=== PATIENT | male | born 1945 | race Caucasian/White ===

== ENCOUNTER 2019-06-28 06:43 | Emergency (ER) | payer MEDICARE, BC ==
--- NOTE | 2019-06-28 07:33 | EDM.PDOC ---
ED HPI GENERAL MEDICAL PROBLEM - General Chief Complaint: Laceration Stated Complaint: FELL IN BATHROOM HIT LIP AND BLEEDING Time Seen by Provider: 06/28/19 07:00 Source of Information: Reports: Patient, Family History Limitations: Reports: No Limitations - History of Present Illness INITIAL COMMENTS - FREE TEXT/NARRATIVE: 73-year-old male was on the toilet this morning when he became lightheaded and had a syncopal episode. He was completely unconscious briefly and fell forward hitting his lip on the floor. He was confused for a period of time but then "came around". If it wasn't for the lip laceration his would not brought him in. He is relatively healthy, on no prescription medications, and "does not like hospitals". He had a community screening which I believe was an ultrasound screening this summer and nothing was found, his last annual physical was last August with Dr. Hinojosa. He denies any chest pain, shortness of breath, nausea or vomiting, peripheral edema, joint pains or headache. He has had a cold for the last few days which he is "getting over", has taken some DayQuil cold medicine. Onset: Sudden Duration: Hour(s): (Within the last hour and a half) Location: Reports: Other (Injury is to his lower lip) Associated Symptoms: Reports: Confusion (After fainting he was confused for a period of time), Syncope. Denies: Chest Pain, Cough, Headaches, Nausea/Vomiting , Shortness of Breath - Related Data Allergies Allergy/AdvReac Type Severity Reaction Status Date / Time No Known Allergies Allergy Verified 02/22/16 09:52 Home Meds: Home Meds Cholecalciferol (Vitamin D3) [Vitamin D3] 1,000 units PO DAILY 02/18/16 [History ] Fish Oil/[place]-3 Fatty Acids [Fish Oil 1,000 MG] 1 each PO DAILY 02/18/16 [ History] Naproxen Sodium [Aleve] 220 mg PO BID 02/18/16 [History] Past Medical History HEENT History: Reports: Cataract Cardiovascular History: Reports: Heart Murmur Respiratory History: Reports: Other (See Below) Other Respiratory History: epiglotitis 27 yrs ago Gastrointestinal History: Reports: Colon Polyp Oncologic (Cancer) History: Reports: Other (See Below) Other Oncologic History: skin CA Dermatologic History: Reports: Other (See Below) Other Dermatologic History: skin CA - Past Surgical History HEENT Surgical History: Reports: Cataract Surgery GI Surgical History: Reports: Colonoscopy, Hernia, Inguinal Musculoskeletal Surgical History: Reports: Other (See Below) Social & Family History - Tobacco Use Smoking Status *Q: Never Smoker - Caffeine Use Caffeine Use: Reports: Coffee - Recreational Drug Use Recreational Drug Use: No ED ROS GENERAL - Review of Systems Review Of Systems: See Below Constitutional: Denies: Fever, Chills HEENT: Reports: Other (Initially thought his teeth were "out of alignment" but now he says they're fine, he thinks he was just confused) Respiratory: Denies: Shortness of Breath, Cough, Sputum Cardiovascular: Denies: Chest Pain, Palpitations GI/Abdominal: Denies: Abdominal Pain, Nausea, Vomiting : Reports: No Symptoms Skin: Reports: No Symptoms Neurological: Reports: Syncope. Denies: Headache Psychiatric: Reports: No Symptoms (Patient is extremely anxious about being in hospitals) ED EXAM, SKIN/RASH Exam: See Below Exam Limited By: No Limitations General Appearance: Alert, No Apparent Distress Eye Exam: Bilateral Eye: Normal Inspection Head: Other (Lip laceration is present on the lower lip. It is transverse through the mucosa of the lower lip, it does not cross the vermilion border but there is a separate 1 cm transverse laceration under the lip just below the vermilion border. The vermilion border is not lacerated.) Respiratory/Chest: No Respiratory Distress, Lungs Clear Cardiovascular: Bradycardia, Irregularly Irregular GI/Abdominal: Soft, Non-Tender Extremities: Normal Inspection. No: Pedal Edema Neurological: Alert, Oriented, No Motor/Sensory Deficits Psychiatric: Flat Affect Skin: Warm, Dry, Other (No other trauma to the skin other than the lower lip and face) EKG INTERPRETATION EKG Date: 06/28/19 Time: 07:00 Rhythm: A-Flutter Rate (Beats/Min): 56 QRS: Normal Course - Vital Signs Last Recorded V/S: Last Vital Signs Temp 96 F 06/28/19 07:09 Pulse 61 06/28/19 09:06 Resp 16 06/28/19 09:06 BP 111/56 L 06/28/19 09:06 Pulse Ox 99 06/28/19 09:06 - Orders/Labs/Meds Orders: Active Orders 24 hr Category Date Time Status EKG 12 Lead [EK] Routine Ther 06/28/19 07:19 Ordered Labs: Laboratory Tests 06/28/19 06/28/19 Range/Units 07:30 07:30 WBC 4.8 (4.5-11.0) K/uL RBC 5.11 (4.30-5.90) M/uL Hgb 14.4 (12.0-15.0) g/dL Hct 45.1 (40.0-54.0) % MCV 88 (80-98) fL MCH 28 (27-31) pg MCHC 32 (32-36) % Plt Count 136 L (150-400) K/uL Neut % (Auto) 62 (36-66) % Lymph % (Auto) 24 (24-44) % [place] % (Auto) 12 H (2-6) % Eos % (Auto) 1 L (2-4) % Baso % (Auto) 0 (0-1) % Sodium 141 (140-148) mmol/L Potassium 5.3 H (3.6-5.2) mmol/L Chloride 106 (100-108) mmol/L Carbon Dioxide 27 (21-32) mmol/L Anion Gap 13.3 (5.0-14.0) mmol/L BUN 19 H (7-18) mg/dL Creatinine 1.2 (0.8-1.3) mg/dL Est Cr Clr Drug Dosing 58.68 mL/min Estimated GFR (MDRD) 60 (>60) Glucose 123 H (74-106) mg/dL Calcium 9.0 (8.5-10.1) mg/dL Total Bilirubin 0.7 (0.2-1.0) mg/dL AST 35 (15-37) U/L ALT 29 (12-78) U/L Alkaline Phosphatase 51 (46-116) U/L Troponin I < 0.017 (0.000-0.056) ng/mL Total Protein 6.7 (6.4-8.2) g/dL Albumin 3.4 (3.4-5.0) g/dL Globulin 3.3 (2.3-3.5) g/dL Albumin/Globulin Ratio 1.0 L (1.2-2.2) TSH, Ultra Sensitive 1.865 (0.358-3.740) uIU/mL Meds: Medications Discontinued Medications Generic Name Dose Route Start Last Admin Trade Name Danyell PRN Reason Stop Dose Admin Lidocaine HCl 5 ml 06/28/19 07:19 06/28/19 07:23 Xylocaine-Mpf 1% INJECT 06/28/19 07:20 5 ml ONETIME ONE Administration - Re-Assessments/Exams Free Text/Narrative Re-Assessment/Exam: 06/28/19 07:33 On the supervisor liquefaction the patient was obviously in an arrhythmia, it was a narrow complex bradycardia with frequent PVCs and appeared to have an underlying sawtooth pattern. An EKG was done which confirmed atrial flutter. This patient has no history of atrial flutter or atrial fibrillation and cannot feel palpitations or any other symptoms that would indicate he knows the onset. A CBC, CMP, TSH, and troponin were obtained and the lip will be prepared for suturing. 06/28/19 08:00 The lip was anesthetized with lidocaine. The mucosal laceration was closed with 4 5-0 Vicryl sutures. The 1 cm facial laceration just under the lip was closed with one 5-0 Vicryl suture. He was kept on cardiac monitoring pending labs. 06/28/19 08:48 Patient's labs returned reassuring including a negative troponin and normal TSH. He wanted to avoid hospitalization if possible. I discussed his case with internal medicine, and he was set up with a 48-hour Holter monitor and will start a full dose aspirin daily. He will return if he has recurrent syncopal episodes, develops shortness of breath or chest pain. Otherwise he will recheck with Dr. Hinojosa in [place] next week to discuss the Holter monitor results and any further recommendations. Departure - Departure Time of Disposition: 09:32 Disposition: Home, Self-Care 01 Clinical Impression: Vasovagal syncope Lip laceration Qualifiers: Encounter type: initial encounter Qualified Code(s): S01.511A - Laceration without foreign body of lip, initial encounter Atrial flutter Qualifiers: Atrial flutter type: unspecified Qualified Code(s): I48.92 - Unspecified atrial flutter - Discharge Information Instructions: Atrial Flutter, Laceration Care, Adult, Ambulatory Cardiac Monitoring, Syncope, [id number], Mouth Laceration Referrals: PCP,None [Primary Care Provider] - Forms: ED Department Discharge Care Plan Goals: Wear Holter monitor as instructed, started one full dose aspirin daily, and return anytime if recurring fainting, shortness of breath or chest pain. Otherwise call Dr. Hinojosa to schedule an appointment sometime late next week to discuss Holter monitor results and any further testing needed. - My Orders Last 24 Hours: My Active Orders 06/28/19 07:19 EKG 12 Lead [EK] Routine - Assessment/Plan Last 24 Hours: My Active Orders 06/28/19 07:19 EKG 12 Lead [EK] Routine
[2019-06-28 09:22] VITALS: BP 111/56; PULSE 61
== END 2019-06-28 09:27 | disposition home or self-care (01) ==
LOC: JP.ED 06:43
DX: S01.511A Laceration without foreign body of lip, initial encounter (principal); R55 Syncope and collapse; I48.92 Unspecified atrial flutter; W18.30XA Fall on same level, unspecified, initial encounter
CPT/HCPCS: 12011; 36415; 80053; 84443; 84484; 85025; 93005; 93225; 93226; 99283; J2001

== ENCOUNTER 2021-01-12 08:01 | Day surgery (SDC) | payer MEDICARE, BC ==
[~2021-01-12 08:01] MED LIST: Propofol 200 MG/20 ML SDV ONE; fentaNYL 100 MCG/2 ML SDV ONE
[2021-01-12] MEDS ORDERED: Dextrose 5%-Lactated Ringers 1,000 ML IV SCH (08:30)
[2021-01-12 13:11] VITALS: BP 134/74; PULSE 58
--- NOTE | 2021-01-26 15:02 | OR ---
DATE OF PROCEDURE: 01/12/2021 SURGEON: Robin Espinoza MD PREOPERATIVE DIAGNOSIS: Personal history of colon polyps. POSTOPERATIVE DIAGNOSES: 1. No recurrent colorectal polyps. 2. Encinas diverticulosis. OPERATIVE PROCEDURE: Flexible colonoscopy. ANESTHESIA: IV sedation. INDICATIONS FOR PROCEDURE: This is a 75-year-old male presenting with history of colon polyps for a followup colonoscopy with biopsies and/or polypectomy as indicated. Potential risks including bleeding and perforation were discussed and the patient wishes to proceed. DETAILS OF PROCEDURE: The patient was taken to the operating room and placed in a left lateral decubitus position. IV sedation was administered after which the initial digital rectal exam was performed and was unremarkable. Colonoscope was then passed into the rectum with retroflexion revealing uncomplicated hemorrhoidal columns. Scope was eventually passed to the level of the cecum. The prep was fairly good. Only a small amount of liquid stool was present. The patient had diverticulosis involving the entire abdominal colon. This however was uncomplicated. The patient had no evidence of any recurrent polyps or other signs of neoplasia and the patient had no areas of colitis. The scope was withdrawn, the above findings reconfirmed, and the procedure concluded. The patient was taken to the recovery room in satisfactory condition. Recommendation would be to repeat the colonoscopy in 5 years given the patient's history of colon polyps. Robin Espinoza MD /[id number]
== END 2021-01-12 13:52 | disposition home or self-care (01) ==
LOC: JP.SDS 08:01
PROVIDERS: ATTEND Surgery
DX: Z12.11 Encounter for screening for malignant neoplasm of colon (principal); K57.30 Diverticulosis of large intestine without perforation or abscess without bleeding; K64.9 Unspecified hemorrhoids; I37.1 Nonrheumatic pulmonary valve insufficiency; I77.819 Aortic ectasia, unspecified site; Z86.010 Personal history of colon polyps
CPT/HCPCS: G0105; J2704; J3010; J7121